=== PATIENT | female | born 2000 | race African-American/Black ===

== ENCOUNTER 2024-04-04 09:05 | Outpatient (CLI) | payer OTHER, SELFPAY ==
[2024-04-04 10:05] LABS: Hematocrit 34.5 % (37.0-47.0); Hemoglobin 10.8 g/dL (12.0-15.0); Mean Corpuscular HGB Conc 31.3 g/dl (32-36); Mean Corpuscular Hemoglobin 27.5 pg (26-34); Mean Corpuscular Volume 87.8 fl (80-100); Mean Platelet Volume 11.7 fl (7.4-10.4); Platelet Count Result 223 k/mm3 (150-375); Red Blood Count 3.93 M/mm3 (4.2-5.4); Red Cell Distribution Width 15.8 % (11.5-14.5); White Blood Count 6.7 K/mm3 (4.5-10.0)
[2024-04-04 10:52] LABS: HIV 1/2 Ab P24 Ag Result Negative (Negative)
[2024-04-04 14:00] LABS: Rapid Plasma Reagin Non-Reactive (NonReactive)
== END 2024-04-04 09:06 | disposition home or self-care (01) ==
PROVIDERS: Visit Provider Obstetrics & Gynecology
DX: Z01.818 Encounter for other preprocedural examination (principal)
CPT/HCPCS: 36415; 85027; 86592; 86703; 86850; 86900; 86901; G0432

== ENCOUNTER 2024-04-05 09:41 | Inpatient (IN) | payer OTHER, SELFPAY ==
[2024-04-05] VITALS (64 sets, daily range): BP systolic 80–142; BP diastolic 16–77; PULSE 59–147; RESP 12–18; TEMP 36.1–36.7; O2SAT 93–100; BMI 33.7
[2024-04-05] MEDS: ACETAMINOPHEN 500 MG TABLET 1000 MG PO (10:08)
[2024-04-05] MEDS: LACTATED RINGERS 1,000 ML 125 ML IV CONT ×2 (10:18→12:07)
--- NOTE | 2024-04-05 10:29 | LDADM ---
This patient, Gilbert Varghese, was admitted to Labor/Delivery/Recovery 120 on 04/05/24 at 09:41. Plans for section, pain management and were discussed with patient. Patient/family oriented to hospital policies and general routines including ID bracelet, bed and alarms, visiting hours, pain management, procedures, bathroom and other care routines, personal items, smoking policy, room service/diet and guest tray routines, security routines, and visiting hours. Patient/Family are encouraged to report perceived risks to care and to ask questions if they do not understand what they are told or what they should do. See OBIX for further documentation.
--- NOTE | 2024-04-05 11:54 | P.PNAN_ITS ---
Anes - Initial Pre Proc Eval Procedure: Operation Date: 04/05/24 12:00 Proposed Procedures p Repeat Section - Nick Sánchez MD Date/Time: 04/05/24 11:54 Surgeon: Nick Sánchez MD Pre Op Diagnosis: c section Patient Data Age: 23 Gender: F Height: 1.79 m Weight: 108 kg Last Vital Signs Pulse 74 04/05/24 10:17 BP 120/67 04/05/24 10:17 O2 Del Method Room Air 04/05/24 10:21 Allergies Allergy/AdvReac Type Severity Reaction Status Date / Time No Known Allergies Allergy Verified 03/16/24 11:48 Home Medications Medication Instructions Recorded Confirmed Type vits no.126-ferrous fum 1 tablet PO DAILY 03/16/24 04/05/24 History 28 mg iron-folic acid 800 mcg tablet (Classic ) Patient hx anesthesia problems: none Family hx anesthesia problems: none Results Review: All pre-operative results and documents have been reviewed as part of the pre- operative evaluation. PMFSH Family History Family History Sibling Diabetes mellitus Grandparent Hypertension Social History Social History Smoking status: Former smoker Smoking end date: 07/19/23 Substance use: former Do You Feel Safe in your Home?: Yes Lack of Transportation: No Lack of Food: Never True Current Housing: I Have Housing Concerned About Future Housing: No Difficulty Paying Gas/Electric Bills: No Difficulty Paying for Meds: No Currently Unemployed: No Education: High School Diploma/GED Difficulty w/ Childcare or Family Care: No Spiritual care concerns: No Anes - Eval Final PreProcedure Day of Procedure 04/05/24 11:54 Patient weight: obese Heart: regular rate and rhythm Lungs: clear to auscultation Airway: Mallampati scale class II Neurological: alert and oriented Last oral intake: >/= 8 hours ASA classification: II Emergent: no Anesthetic plan: proceed Anesthesia type and monitoring: regional spinal and standard monitoring Results Review: All pre-operative results and documents have been reviewed as part of the pre- operative evaluation. Informed Consent: The patient's anesthetic plan and its attendant risks and benefits were discussed with the patient/family/POA. Questions were solicited and answers provided to the satisfaction of the patient/family/POA.
[2024-04-05] MEDS: ONDANSETRON INJ 4 MG/2 ML VIAL IV PUSH ×2 (12:07→18:49)
[2024-04-05] MEDS: FAMOTIDINE 20 MG/2 ML VIAL IV PUSH (12:08)
[2024-04-05] MEDS: ceFAZolin 2 GM/D5W 50 ML 2 GM/50 ML BAG IVPB (12:14)
[2024-04-05] MEDS: OXYTOCIN 30 UNITS/NS 500 ML 30 UNITS/500 ML BAG 125 UNITS IV CONT (15:23)
--- NOTE | 2024-04-05 15:29 | PM.IMHP ---
H&P: HPI History of Present Illness Date/Time: 04/05/24 12:00 (late entry due to [employer] downtime) Chief Complaint: repeat c section Narrative: Patient is a 23 year old who presents for repeat c section. Her has been otherwise uncomplicated. She denies strong contractions, leakage of fluid or vaginal bleeding. Reports good movement. Risks and benefits of repeat c section previously discussed and patient elects to proceed with repeat c section. Review of Systems Review of Systems: All systems reviewed & are unremarkable except as noted in HPI and below PMFSH Family History Family History Sibling Diabetes mellitus Grandparent Hypertension Social History Social History Smoking status: Former smoker Smoking end date: 07/19/23 Substance use: former Do You Feel Safe in your Home?: Yes Lack of Transportation: No Lack of Food: Never True Current Housing: I Have Housing Concerned About Future Housing: No Difficulty Paying Gas/Electric Bills: No Difficulty Paying for Meds: No Currently Unemployed: No Education: High School Diploma/GED Difficulty w/ Childcare or Family Care: No Spiritual care concerns: No Meds Home Medications and Allergies Home Medications Medication Instructions Recorded Confirmed Type vits no.126-ferrous fum 1 tablet PO DAILY 03/16/24 04/05/24 History 28 mg iron-folic acid 800 mcg tablet (Classic ) Allergies Allergy/AdvReac Type Severity Reaction Status Date / Time No Known Allergies Allergy Verified 03/16/24 11:48 Vital Signs Vital Signs - 24 hr 04/05/24 10:21 04/05/24 10:17 04/05/24 13:21 Temperature Pulse Rate 74 95 Respiratory Rate Blood Pressure 120/67 88/56 L Pulse Oximetry Oxygen Delivery Room Air 04/05/24 13:22 04/05/24 13:23 04/05/24 13:23 Temperature Pulse Rate 68 Respiratory Rate Blood Pressure 113/60 Pulse Oximetry 100 100 100 Oxygen Delivery 04/05/24 13:26 04/05/24 13:28 04/05/24 13:32 Temperature Pulse Rate 147 H 84 Respiratory Rate Blood Pressure 122/77 142/76 H Pulse Oximetry 100 Oxygen Delivery 04/05/24 13:33 04/05/24 13:35 04/05/24 13:38 Temperature Pulse Rate 70 Respiratory Rate Blood Pressure 110/55 L Pulse Oximetry 100 98 Oxygen Delivery 04/05/24 13:40 04/05/24 13:43 04/05/24 13:48 Temperature Pulse Rate 69 Respiratory Rate Blood Pressure 104/45 L Pulse Oximetry 100 100 Oxygen Delivery 04/05/24 13:53 04/05/24 13:58 04/05/24 14:03 Temperature Pulse Rate Respiratory Rate Blood Pressure Pulse Oximetry 100 100 100 Oxygen Delivery 04/05/24 14:04 04/05/24 14:04 04/05/24 14:04 Temperature Pulse Rate Respiratory Rate Blood Pressure Pulse Oximetry 100 100 100 Oxygen Delivery 04/05/24 14:05 04/05/24 14:06 04/05/24 14:07 Temperature Pulse Rate Respiratory Rate Blood Pressure Pulse Oximetry 100 100 93 Oxygen Delivery 04/05/24 14:07 04/05/24 14:07 04/05/24 14:08 Temperature Pulse Rate 66 Respiratory Rate Blood Pressure 120/54 L Pulse Oximetry 100 100 Oxygen Delivery 04/05/24 14:10 04/05/24 14:12 04/05/24 14:15 Temperature Pulse Rate 68 65 Respiratory Rate Blood Pressure 110/59 L 109/56 L Pulse Oximetry 100 100 Oxygen Delivery 04/05/24 14:17 04/05/24 14:20 04/05/24 14:22 Temperature Pulse Rate 78 Respiratory Rate Blood Pressure 113/53 L Pulse Oximetry 100 100 Oxygen Delivery 04/05/24 14:25 04/05/24 14:27 04/05/24 14:30 Temperature Pulse Rate 68 71 Respiratory Rate Blood Pressure 112/55 L 123/55 L Pulse Oximetry 100 Oxygen Delivery 04/05/24 14:32 04/05/24 14:36 04/05/24 14:37 Temperature Pulse Rate 89 Respiratory Rate
[2024-04-05] MEDS: MORPHINE SULFATE INJ (*CRX) 10 MG/ML AMP 3 MG IV PUSH (15:30)
--- NOTE | 2024-04-05 15:32 | P.PCNOB_ITS ---
OB - Delivery Note Procedure Delivery date: 04/05/24 Pre-op diagnosis: Previous Delivery Post-op Diagnosis: Same Induction method: None Delivery monitor: External FHT Prior to decision for section, ACOG/SMFM labor guidelines were considered and discussed with the patient and staff. Decision made to proceed with the section.: Yes Procedure Performed: Repeat Surgeon: Nick Sánchez MD Anesthesia type: Spinal Description of Procedure/Findings: The patient was taken to the operating room where she was placed in the dorsal supine position with a leftward tilt. The electronic monitor was placed and heart rate was found to be reassuring. She was prepped and draped in the normal sterile fashion, and anesthesia was checked to be adequate. A Pfannensteil skin incision was made with the scalpel and carried through to the underlying layer of fascia with the scalpel. The fascia was incised in the midline and the incision extended laterally with the Corley scissors. The superior aspect of the fascial incision was then grasped with Deniz clamps, elevated, and the underlying rectus muscles dissected off bluntly and with Corley scissors. Attention was then turned to the inferior aspect of the fascial incision, which in similar fashion was grasped, elevated, and the rectus muscles dissected off.? The rectus muscles were then in the midline, and the peritoneum entered using two Peans and Metzenbaum scissors. The peritoneal incision was extended superiorly and inferiorly with good visualization of the bladder. With the bladder blade providing retraction and visualization, the lower uterine segment was incised in a transverse fashion with the scalpel. The uterine incision was then extended laterally. The bladder blade was removed and the 's head was elevated and delivered atraumatically. The remainder of the was then delivered without difficulty, and the infant's nose and mouth were suctioned with the bulb suction. The umbilical cord was doubly clamped and cut. The was then handed off to the waiting nursing staff. Specimens then obtained as listed below. The placenta was then removed manually and the uterus was exteriorized and cleared of all clots and debris. The uterine incision was repaired with 0- Monocryl in a running, interlocked fashion. The posterior cul-de-sac was manually cleared of all clots and debris. The uterus was returned to the abdomen. The gutters were then manually cleared of all clots and debris.? The uterine incision was visualized to be hemostatic. The fascia was reapproximated with 0-Vicryl in a running fashion. The subcutaneous tissues were irrigated with warmed normal saline, and hemostasis was assured. The skin was closed with 4-0 monocryl in a running subcuticular stitch. Fundal pressure was applied to express remaining intrauterine clots and debris. The patient tolerated the procedure well. Sponge, lap, and needle counts were correct times three per nursing. The patient was taken to the recovery room in stable condition. Estimated Blood Loss: 465 Pathology: None sent Complications: No immediate complications Condition: Stable Disposition: [place] Baby Date of : 04/05/24 Weeks of gestation at delivery: 39 Infant gender: Female Weight (pounds): 6 Weight (ounces): 4 presentation: vertex Placenta delivery description: Expressed Cord Vessel Description: 3 Vessels and Delayed Cord Clamping
--- NOTE | 2024-04-05 15:32 | WPDHPUPDATE1 ---
History and Physical Update Update Date/Time: 04/05/24 12:00 (late entry due to [employer] downtime) History and Physical has been reviewed, including an updated exam of the patient. There are NO changes in the patient's condition. Risks, benefits, and alternatives have been discussed and questions answered. Patient agrees to proceed with procedure.
--- NOTE | 2024-04-05 15:43 | OBPPTRN ---
Patient transferred to post room # 282 via stretcher. Support person present. Oriented to unit, room, information board, rooming in, admission packet and security measures. Patient verbalizes understanding.
[2024-04-05] MEDS: KETOROLAC 15 MG/ML VIAL (*BKC) IV PUSH ×2 (16:40→22:41)
[2024-04-05] MEDS: METOCLOPRAMIDE HCL INJ 10 MG/2 ML VIAL IV PUSH (16:42)
[2024-04-05] MEDS: SIMETHICONE 80 MG TAB.CHEW PO (16:42)
[2024-04-05] MEDS: DOCUSATE SODIUM 100 MG CAPSULE PO (16:42)
[2024-04-05] MEDS: ACETAMINOPHEN 325 MG TABLET 650 MG PO ×2 (16:42→22:42)
[2024-04-05] MEDS: DEXTROSE 5%/0.45% SOD CHL 1,000 ML 125 ML IV CONT (18:51)
[2024-04-06] VITALS: BP 121/66; PULSE 66; RESP 17; TEMP 36.5; O2SAT 100
[2024-04-06] MEDS: ACETAMINOPHEN 325 MG TABLET 650 MG PO ×4 (04:23→23:08)
[2024-04-06] MEDS: KETOROLAC 15 MG/ML VIAL (*BKC) IV PUSH (04:23)
[2024-04-06 05:23] LABS: Basophils Percent Auto 0.1 % (0.2-1.2); Hemoglobin 9.7 g/dL (12.0-15.0); Immature Granulocyte Absolute 0.08 K/mm3 (0.00-0.031); Immature Granulocyte Percent A 0.5 % (0-0.5); Lymphocytes Absolute Auto 1.11 K/mm3 (0.9-3.2); Mean Corpuscular HGB Conc 31.3 g/dl (32-36); Mean Corpuscular Hemoglobin 27.8 pg (26-34); Mean Corpuscular Volume 88.8 fl (80-100); Mean Platelet Volume 12.1 fl (7.4-10.4); Monocytes Absolute Auto 1.3 K/mm3 (0.1-0.6); Monocytes Percent Auto 7.9 % (2.6-8.5); Neutrophils Absolute Auto 13.4 K/mm3 (1.3-6.7); Neutrophils Percent Auto 84.5 % (45.5-73.1); Platelet Count Result 217 k/mm3 (150-375); Red Blood Count 3.49 M/mm3 (4.2-5.4); Red Cell Distribution Width 15.6 % (11.5-14.5); White Blood Count 15.8 K/mm3 (4.5-10.0)
[2024-04-06] MEDS: HYDROcodone/acetaminophen (*CRX) 5-325 MG TABLET 1 TAB PO (07:05)
[2024-04-06] MEDS: LIDOCAINE 5% PATCH 1 PATCH TRANSDERM (07:06)
[2024-04-06 07:35] VITALS: BP 106/62; PULSE 64; RESP 16; TEMP 37.2; O2SAT 100
[2024-04-06] MEDS: DOCUSATE SODIUM 100 MG CAPSULE PO ×2 (09:10→16:56)
[2024-04-06] MEDS: SIMETHICONE 80 MG TAB.CHEW PO ×3 (09:10→16:56)
[2024-04-06] MEDS: MULTIVIT/MIN/PREN/FOL AC/IRON TABLET 1 TAB PO (09:10)
[2024-04-06] MEDS: POLYSACCHARIDE IRON COMPLEX 150 MG CAPSULE PO ×2 (09:10→16:56)
[2024-04-06] MEDS: IBUPROFEN 600 MG TABLET PO ×3 (10:02→23:08)
--- NOTE | 2024-04-06 12:30 | PM.OBPNVD ---
OB - PN: Subj Subjective Date/time seen: 04/06/24 12:30 Interval history: POD#1 s/p RLTCS Doing well, pain well controlled Emptying bladder without issue Tolerating general diet Formula/breast feeding OB - PN: Obj Data Labs 04/06/24 03:54 Labs: Laboratory Results - last 24 hr 04/06/24 03:54 WBC 15.8 H RBC 3.49 L Hgb 9.7 L Hct 31.0 L MCV 88.8 MCH 27.8 MCHC 31.3 L RDW 15.6 H Plt Count 217 MPV 12.1 H Immature Gran % (Auto) 0.5 Neut % (Auto) 84.5 H Lymph % (Auto) 7.0 L Garden % (Auto) 7.9 Eos % (Auto) 0.0 Baso % (Auto) 0.1 L Lymph # (Auto) 1.11 Garden # (Auto) 1.3 H Eos # (Auto) 0.0 Baso # (Auto) 0.0 Abs Immat Gran (auto) 0.08 H Absolute Neuts (auto) 13.4 H Absolute Nucleated RBC 0.000 Nucleated RBC % 0.0 OB - PN A/P Assessment and Plan (1) S/P : Code(s): Z98.891 - History of uterine scar from previous surgery Status: Acute Plan day: 1 Plan: routine care Time Spent With Patient Time: Total time spent is greater than 50% in coordination of care (as documented) at patient's floor/unit and/or counseling patient: Review of Systems Review of Systems: All systems reviewed & are unremarkable except as noted in HPI and below Exam Const: General: comfortable and no acute distress Resp: Effort & Inspection: normal respiratory effort GI: GI Palp: Yes Soft to palpation and No Tenderness to palpation present (GI) Other: incision c/d/i
[2024-04-06] MEDS: HYDROcodone/acetaminophen (*CRX) 10-325 MG TABLET 1 TAB PO (14:17)
--- NOTE | 2024-04-06 15:38 | WPDANLDPN2 ---
Anes-Prog Note L&D Date/Time: 04/06/24 15:38 Comfortable throughout: section Neuraxial method: spinal Epidural/Spinal procedure site: tender Neuro status: Neuro function grossly intact. Cardiovascular status: normal Respiratory status: normal Airway patency: baseline Mental status: baseline Post-Op hydration status: normal Vital Signs: Last Vital Signs Temp 37.2 C 04/06/24 07:35 Pulse 64 04/06/24 07:35 Resp 16 04/06/24 07:35 BP 106/62 04/06/24 07:35 Pulse Ox 100 04/06/24 07:35 O2 Del Method Room Air 04/05/24 20:00 Pain score (VAS): 310 I/O: Intake & Output 04/05/24 04/06/24 04/06/24 23:59 07:59 15:59 Intake Total 1850 Output Total 325 1375 200 Balance -325 475 -200 Post-procedural complaints: pruritis mild, no treatment Patient feedback: Patient satisfied with anesthetic care.
--- NOTE | 2024-04-06 15:39 | WPDANLDNPN2 ---
Anes-Prog Note L&D-Neuraxial Date/Time: 04/06/24 15:39 Neuraxial medications: intrathecal PF morphine Opiod-related complaints: pruritis mild, no treatment Patient feedback: Patient satisfied with post-operative pain management.
--- NOTE | 2024-04-06 16:28 | PC.NURSE ---
Addendum entered by Sarahi Brantley RN 04/06/24 16:33: The was not able to maintain latch. Original Note: 1520. Consulted with patient to assess needs related to . We reviewed working with the , supporting breast, protecting her nipples with an optimal deep latch, good positioning, and good hand washing. Encouraged understanding the benefits of skin to skin, responding to feeding cues, frequencies of feeding 8-12 times in 24 hours (approximately 2-3 hours), duration of feedings, milk production, intake/output feeding sheet and signs of adequate intake encouraging swallowing at the breast. Mother reported has not been a good roll over loader and she has been pumping and feeding with a bottle. Reviewed positioning and alignment, supporting breast, off-centered (asymmetrical latch) and leading with the chin with big, open, wide gape. Infant was sleepy and reluctant to latch. Attempted to latch in the football hold on the left breast. Many attempts made, unsuccessful. Nipple shield offered to mom to attempt to bring infant back to the breast. Infant remained sleepy/reluctant with no successful latch attempts. Education given on undressing and waking when its time to feed. Mother encouraged to continue with the 15-15-15 plan. Education given to the mother of how to visualize the suckling (with good rocking jaw motion) swallows (dropping of the lower jaw) and how to listen for drinking at the breast (the ka sound). The infant was [able/not able] to maintain latch without discomfort to mother. Nipple care reviewed with optimal latch, good positioning and using clean hands when touching her breast. Resources used to facilitate learning were used from the [visual handouts/ tool/mom and baby guide]. Mother voiced understanding of the education shared, to call for assistance if the does not latch or if there is discomfort with . Reported to the Primary RN.
--- NOTE | 2024-04-06 17:42 | PCCCNOTE ---
Addendum entered by SEVERIANO Davis 04/13/24 10:11: Spoke with Jack Vela at [facility] Hotline who reports they are offering services to pt. and family, and no investigation being completed. Call ID #[phone] Original Note: Recvd CC consult due to high score on OB Substance Abuse Screening and Housing SDOH resources. Met with pt. and pt's ZIONB Bird at bedside. Pt. reports she, FOB, and 2 children will be living in the home on in [facility]. Pt. self admits using THC during due to nausea and appetite. No UDS for pt. available, and no plan to do a drug screen on baby. Pt. reports prior involvement with [facility] and thinks her last case was closed in 2021. Pt. reports her friend Mildred, sister Kylie, and FOB family are all supportive. Pt. reports has baby supplies for . pt. reports established with both WIC and [employer] [place]. and substance abuse resources provided to pt. Pt. declined need for Housing SDOH resource and states they have no concerns for lack of housing. [facility] report made online #[phone]. CLAUDE magallon.
[2024-04-06 19:30] VITALS: BP 135/74; PULSE 76; RESP 16; TEMP 36.6; O2SAT 100
[2024-04-07] MEDS: HYDROcodone/acetaminophen (*CRX) 5-325 MG TABLET 1 TAB PO (02:23)
[2024-04-07] MEDS: IBUPROFEN 600 MG TABLET PO ×2 (04:58→10:54)
[2024-04-07] MEDS: ACETAMINOPHEN 325 MG TABLET 650 MG PO ×2 (04:58→10:54)
[2024-04-07] MEDS: SIMETHICONE 80 MG TAB.CHEW PO (07:20)
[2024-04-07] MEDS: LIDOCAINE 5% PATCH 1 PATCH TRANSDERM (07:21)
[2024-04-07 07:35] VITALS: BP 116/73; PULSE 60; RESP 18; TEMP 36.8; O2SAT 100
[2024-04-07] MEDS: POLYSACCHARIDE IRON COMPLEX 150 MG CAPSULE PO (09:42)
[2024-04-07] MEDS: DOCUSATE SODIUM 100 MG CAPSULE PO (09:42)
[2024-04-07] MEDS: MULTIVIT/MIN/PREN/FOL AC/IRON TABLET 1 TAB PO (09:42)
--- NOTE | 2024-04-07 10:35 | P.PNOB_ITS ---
OB - PN: Subj Subjective Date/time seen: 04/07/24 10:35 Interval history: POD#2 s/p RLTCS Doing well, pain well controlled Emptying bladder without issue Ready for discharge home today OB - PN: Obj Data Labs 04/06/24 03:54 OB - PN A/P Plan day: 2 Plan: routine care and discharge home Time Spent With Patient Time: Total time spent is greater than 50% in coordination of care (as documented) at patient's floor/unit and/or counseling patient: Review of Systems Review of Systems: All systems reviewed & are unremarkable except as noted in HPI and below Exam 2 Const: General: comfortable and no acute distress Resp: Effort & Inspection: normal respiratory effort GI: GI Palp: Yes Soft to palpation and No Tenderness to palpation present (GI) Other: incision c/d/i
--- NOTE | 2024-04-07 10:40 | P.DS_ITS ---
DS: Admitting Diagnosis Discharge Date 04/07/24 Admitting Diagnosis repeat c section DS: Discharge Diagnosis Discharge Diagnosis (1) S/P : Code(s): Z98.891 - History of uterine scar from previous surgery Status: Acute OB - DS: Summary OB Procedures : None OB Procedures Intrapartum: low cervical, transverse OB Procedures: : None Peripartum Data Procedures: Procedures Operation Date: 04/05/24 12:00 Actual Procedure Side Surgeon p Repeat Section Not Applicable Nick Sánchez MD Time Spent with Patient Time attestation: Total time spent providing and/or coordinating discharge services: Discharge Plan Discharge Attending physician on discharge: Nick Sánchez Discharging Clinician: Nick Sánchez Patient Disposition: Home, Self-Care Activity: may shower, may drive after 2 weeks and as tolerated Diet: as tolerated Patient Instructions: Antibiotic Form Stand Alone Forms: General Discharge Information Follow-up/Referrals: Nick Sánchez MD [Physician] - 1 Week Discharge Medications: New hydrocodone-acetaminophen 5-325 mg Tablet 1 tablet PO Q3H PRN (Reason: Breakthrough Pain Rated 4-6) Qty: 18 0RF docusate sodium 100 mg Capsule 100 mg PO BID Qty: 60 0RF ibuprofen 600 mg Tablet 600 mg PO Q6H Qty: 30 0RF Continued Classic 28 mg iron- 800 mcg Tablet 1 tablet PO DAILY Date of admission: 04/05/24 09:41 Primary Care Provider: PHYSICIAN,CNC MACHINE OPERATOR Admitting Provider: Nick Sánchez Attending physician on admission: Nick Sánchez Condition: Stable
[2024-04-08 10:26] VITALS: BP 121/69; PULSE 71; RESP 18; TEMP 36.9; O2SAT 100
== END 2024-04-07 12:40 | disposition home or self-care (01) | DRG 540 ==
LOC: ANHLDR 09:44 → ANHOB2 15:45
PROVIDERS: Admitting Provider Obstetrics & Gynecology; Visit Provider Obstetrics & Gynecology
PROC: 10D00Z1 Extraction of Products of Conception, Low, Open Approach (ICD-10-PCS; CPT 59514; principal; 2024-04-05 12:00)
DX: O34.211 Maternal care for low transverse scar from previous cesarean delivery (principal); Z37.0 Single live birth; Z3A.39 39 weeks gestation of pregnancy; O77.0 Labor and delivery complicated by meconium in amniotic fluid; O99.824 Streptococcus B carrier state complicating childbirth; O99.73 Diseases of the skin and subcutaneous tissue complicating the puerperium; L29.9 Pruritus, unspecified
CPT/HCPCS: 36415; 85025; A9270; J0690; J1100; J1885; J2270; J2274; J2371; J2405; J2590; J2765; J7120